=== PATIENT | female | born 1975 | race Caucasian/White ===

== ENCOUNTER 2020-11-25 08:22 | Emergency (ER) | payer SELFPAY ==
[~2020-11-25] VITALS: Ht 172.7 cm; Wt 84.8 kg
[2020-11-25] MEDS ORDERED: IBUPROFEN200 M1 PO (08:49)
[2020-11-25] MEDS ORDERED: DULOXETINE HCL60 MG PO (08:50)
[2020-11-25] MEDS ORDERED: CYMBALTA30 MG PO (08:50)
[2020-11-25] MEDS ORDERED: GABAPENTIN300 MG PO (08:50)
[2020-11-25] MEDS ORDERED: HYDROCODON-ACE1 EA11 PO (09:54)
== END 2020-11-25 10:13 | disposition home or self-care (01) ==
LOC: ED 08:22
DX: S92.354A Nondisplaced fracture of fifth metatarsal bone, right foot, initial encounter for closed fracture (principal); S82.831A Other fracture of upper and lower end of right fibula, initial encounter for closed fracture; X50.9XXA Other and unspecified overexertion or strenuous movements or postures, initial encounter; Z87.891 Personal history of nicotine dependence; Z79.899 Other long term (current) drug therapy
CPT/HCPCS: 73610; 73630; 99283-25; A9270

== ENCOUNTER 2025-01-31 07:48 | Day surgery (SDC) | payer OTHER ==
[2025-01-25 08:16] VITALS: BP 109/87
[~2025-01-31] VITALS: Ht 167.6 cm; Wt 78.6 kg
[~2025-01-31 07:48] MED LIST: BUPROPION XL450 MG PO; CYMBALTA30 MG PO; DULOXETINE HCL60 MG PO; GABAPENTIN300 MG PO; HYDROCODON-ACE1 EA11 PO; IBLOOD GLUCOSE TEST STRIP 1 EA TEST VI PRN; IBUPROFEN200 M1 PO; LACTATED RINGER'S 1,000 ML IV SCH; LIDOCAINE HCL 1% 5 ML SDV INJ ONE; METHYLPHENIDATE10 M1 PO; REXULTI2 MG PO
[2025-01-31 08:01] VITALS: BP 125/80
--- NOTE | 2025-01-31 08:12 | NUR ---
WITH PT AT BS.
--- NOTE | 2025-01-31 11:17 | NUR ---
01/31/25 1117 Alice Evans 1101-PATIENT ARRIVED TO PACU ON 6L MASK NONAROUSABLE RR EVEN. PATIENT LAYING LEFT LATERAL ABDOMEN SOFT. IVF INFUSING. SR HR 70'S. 1110-PATIENT AROUSING OPENING EYES ORIENTED TO PACU DENIES PAIN OR NAUSEA. HOB ELEVATED. 1117-PATIENT AWAKE DENIES PAIN OR NAUSEA. DRINKING WATER AND PASSING GAS. IVF INFUSING. SR HR 70'S O2 96% RR EVEN.
[2025-01-31 11:30] VITALS: BP 107/81
--- NOTE | 2025-02-01 11:31 | OR ---
[facility] [address] [place], [place] [address] Signed DATE OF OPERATION: 01/31/2025 SURGEON: Praful Ren DO PREOPERATIVE DIAGNOSES: 1. Colon cancer screening. 2. Diverticulosis. 3. Nonspecific colitis. PROCEDURE PERFORMED: Colonoscopy. ANESTHESIA: IV sedation. EBL: Is none. DRAINS: None. COMPLICATIONS: None. DESCRIPTION OF PROCEDURE: The patient was brought to the GI lab, placed in supine position. After induction of IV sedation by Anesthesia, she was placed in left lateral position and . Digital rectal exam was performed and found to be unremarkable. The Olympus video colonoscope was then introduced into the rectum and under direct visualization rectosigmoid, sigmoid colon, descending colon, transverse colon, ascending colon to the cecum. General x-rays was carried out. The scope was withdrawn slowly with the colon insufflated. The cecum and the ascending colon were unremarkable. No intrinsic or extrinsic masses were appreciated. Hepatic flexure was unremarkable. No intrinsic or extrinsic masses were noted. Transverse colon was grossly unremarkable except for nonspecific colitis. No intrinsic or extrinsic masses were appreciated. Scope was brought back to the splenic flexure. No intrinsic or extrinsic masses were noted. Scope went back into the descending colon. Nonspecific colitis was present as well, but no ulcerations were noted. No other masses were appreciated. Scope was brought back into the sigmoid colon. Scattered diverticula were noted, but no evidence of diverticulitis. No other intrinsic or extrinsic masses were noted and again nonspecific Electronically Signed By: PRAFUL REN DO 02/01/25 1131 PATIENT NAME: MARTELL TORRES OPERATIVE REPORT DATE OF : 73 REPORT #: [id number] PHYSICIAN: PRAFUL REN DO PCP: DANIS JUSTIN MD REPORT IS CONFIDENTIAL AND NOT TO BE RELEASED WITHOUT AUTHORIZATION [facility] [address] [place], [place] [address] Signed colitis was apparent as well. No ulcerations or other lesions were noted. Scope was brought back into the rectosigmoid, found to be unremarkable. The scope was then withdrawn. The patient tolerated the procedure well and she went to recovery room in satisfactory condition. DO SHASHANK Babb/MODL /[id number] Copies: ~ Electronically Signed By: PRAFUL REN DO 02/01/25 1131 PATIENT NAME: MARTELL TORRES OPERATIVE REPORT DATE OF : 73 REPORT #: [id number] PHYSICIAN: PRAFUL REN DO PCP: DANIS JUSTIN MD REPORT IS CONFIDENTIAL AND NOT TO BE RELEASED WITHOUT AUTHORIZATION
== END 2025-01-31 11:35 | disposition home or self-care (01) ==
LOC: DS 07:48
PROVIDERS: ATTEND Surgery
PROC: 0DJD8ZZ Inspection of Lower Intestinal Tract, Via Natural or Artificial Opening Endoscopic (ICD-10-PCS; principal; 2025-01-31 09:15)
DX: Z12.11 Encounter for screening for malignant neoplasm of colon (principal); K57.30 Diverticulosis of large intestine without perforation or abscess without bleeding; Z79.899 Other long term (current) drug therapy
CPT/HCPCS: 00812; J7121

== ENCOUNTER 2025-04-05 05:48 | Day surgery (SDC) | payer OTHER ==
[~2025-04-05] VITALS: Ht 167.6 cm; Wt 79.0 kg
[~2025-04-05 05:48] MED LIST changes: -IBLOOD GLUCOSE TEST STRIP 1 EA TEST VI PRN; -LIDOCAINE HCL 1% 5 ML SDV INJ ONE
[2025-04-05 06:02] VITALS: BP 131/96
[2025-04-05] MEDS ORDERED: MIDAZOLAM HCL 2 MG/2 ML VIAL ONE (06:57)
[2025-04-05] MEDS ORDERED: fentaNYL citrate 100 MCG/2 ML VIAL ONE (06:57)
[2025-04-05] MEDS ORDERED: LIDOCAINE HCL 2% 5 ML SDV ONE (06:57)
[2025-04-05] MEDS ORDERED: LIDOCAINE HCL 1% 5 ML SDV INJ ONE (07:00)
[2025-04-05] MEDS ORDERED: IBLOOD GLUCOSE TEST STRIP 1 EA TEST VI PRN (07:00)
[2025-04-05] MEDS ORDERED: CEFAZOLIN SODIUM 2 GM/20 ML SYR IV SCH (07:08)
[2025-04-05] MEDS ORDERED: CEFAZOLIN SODIUM 2 GM/20 ML SYR ONE (07:10)
--- NOTE | 2025-04-05 07:34 | NUR ---
0600 PT REFUSES TEST PER PT HAS BEEN POST MENOPAUSAL FOR [address] RODRIGUEZ.
[2025-04-05] MEDS ORDERED: KETAMINE in NS 50 MG/5 ML SYR ONE (07:45)
--- NOTE | 2025-04-05 08:32 | NUR ---
04/05/25 0832 Malissa Day 0208 PT ARRIVED TO PACU ON RA, O2 SAT 95% AND O2 6L VIA MASK TURNED ON VSS. ORAL AIRWAY IN PLACE AND RESP EVEN AND UNLABORED.
[2025-04-05 09:00] VITALS: BP 112/81
[2025-04-05] MEDS ORDERED: OXYCODONE HCL 5 MG TAB PO PRN (09:00)
--- NOTE | 2025-04-11 08:53 | PATH ---
[facility] [address] [place], [place] [address] Signed SPECIMEN(S): A LEFT UPPER OUTER BREAST SPECIMEN SOURCE: A. LEFT UPPER OUTER BREAST CLINICAL HISTORY: Left flat epithelial atypia of breast. FINAL PATHOLOGIC DIAGNOSIS: Left upper outer breast: - Radial scar with focal atypical intraductal hyperplasia - Focal columnar cell hyperplasia with mild atypia - Breast tissue with fibrocystic changes, sclerosing adenosis, and benign intraductal hyperplasia - Features consistent with previous biopsy - Benign intraductal and lobular microcalcifications are present - Negative for in situ or invasive carcinoma COMMENT: A CK5/6 stain was performed and was noncontributory. BB MICROSCOPIC EXAMINATION: Histologic sections of all submitted blocks are examined by light microscopy. These findings, together with the gross examination, support the pathologic diagnosis. GROSS DESCRIPTION: The specimen, labeled and designated "Andreas Kareem, " and designated on the requisition "left upper outer breast," is received in formalin and consists of 14 gram oriented portion of yellow-maldonado fibroadipose tissue that is 4.8 x 3.6 x 1.8 cm. A black suture identifies the superior margin, a white suture identifies the deep margin, and a clear suture at identifies the inferior margin. The specimen is inked as follows: superior - blue; inferior - green; medial - red; lateral - orange; anterior - yellow; and deep/posterior - black. The specimen is serially sectioned from medial to lateral into nine slices revealing approximately 80% of the specimen is a yellow-maldonado greasy adipose tissue and 20% is a pink-white rubbery fibrous tissue. No discrete mass lesions are grossly identified. No clips are grossly identified. PATIENT NAME: MARTELL TORRES PATHOLOGY DATE OF : 73 REPORT #: [id number] PHYSICIAN: [facility]JA PATHOLOGY PCP: DANIS JUSTIN MD REPORT IS CONFIDENTIAL AND NOT TO BE RELEASED WITHOUT AUTHORIZATION [facility] [address] [place], [place] [address] Signed Separate within the container are two portions of yellow-maldonado fibroadipose tissue that measure 1.6 x 1.5 x 1.4 cm, 2.7 x 1.6 x 0.9 cm and have a combined weight of 3 g. The tissue fragments are arbitrarily inked and sectioned revealing approximately 80% of specimen to yellow-maldonado greasy adipose tissue and 20% is a pink-white dense rubbery fibrous tissue. No discrete mass lesions are grossly identified. Separate from the specimen within the container is a metallic hearing instrument specialist detector. The specimen is entirely submitted in 22 cassettes. Cassette Summary: (A1-A4) fibroadipose tissue separate within the container (A5-A6) slice one, medial soft tissue resection margin, perpendicular (A7-A8) slice two (A9-A10) slice three (A11-A12) slice four (A13-A14) slice five (A15-A16) slice six (A17-A18) slice seven (A19-A20) slice eight (A21-A22) slice nine, lateral soft tissue resection margin, perpendicular Time of collection: 8:06 AM April 05, 2025. Time into formalin: 8:16 AM April 05, 2025. Processor load time: 9 AM April 06, 2025. Ischemic time: 10 minutes Total fixation time in formalin: 24 hours 44 minutes The ASCO/CAP guidelines related to HER2 and hormone receptor testing in breast specimens have been met and the specimen has been placed in formalin within one hour and fixed in 10% neutral buffered formalin for 6 to 72 hours. FB (under the direct supervision of a pathologist) The Gross Description was prepared using a voice recognition system. The report was reviewed for accuracy; however, sound-alike word errors, addition and/or deletions may occur. If there is any question about this report, please contact Client Services. ADDITIONAL NOTES: Immunohistochemical and/or in situ hybridization studies if performed in this case included appropriate positive controls that reacted as expected. This test was developed and its performance characteristics determined by [facility]. It has not been cleared or PATIENT NAME: MARTELL TORRES PATHOLOGY DATE OF : 73 REPORT #: [id number] PHYSICIAN: POOJA FREGOSO PCP: DANIS JUSTIN MD REPORT IS CONFIDENTIAL AND NOT TO BE RELEASED WITHOUT AUTHORIZATION [address] [address] Signed approved by the U.S. Food and Drug Administration. The FDA has determined that such clearance or approval is not necessary. This test is used for clinical purposes. It should not be regarded as investigational or for research. [facility] is certified under the Clinical Laboratory Improvement Amendments of 1988 (CLIA) as qualified to perform high complexity clinical laboratory testing. PERFORMING LABORATORY: Technical component was performed by [facility], [address] [place] [id number] (CLIA# [id number]). Professional interpretation was performed by [facility] - [address] [place] [id number] (CLIA#: [id number]). Diagnostician: Aleksey Thomason MD Pathologist Electronically Signed 04/11/2025 Copies: ~ PATIENT NAME: MARTELL TORRES PATHOLOGY DATE OF : 73 REPORT #: [id number] PHYSICIAN: [employer] [facility] PCP: DANIS JUSTIN MD REPORT IS CONFIDENTIAL AND NOT TO BE RELEASED WITHOUT AUTHORIZATION
== END 2025-04-05 09:12 | disposition home or self-care (01) ==
LOC: NUC 05:48 → DS 05:48
PROVIDERS: ATTEND Surgery
PROC: 0HBU3ZX Excision of Left Breast, Percutaneous Approach, Diagnostic (ICD-10-PCS; principal; 2025-04-05 07:30)
DX: N60.82 Other benign mammary dysplasias of left breast (principal); N60.22 Fibroadenosis of left breast; Z87.891 Personal history of nicotine dependence
CPT/HCPCS: 00400; 76098; 84703; A9270; J0690; J2003; J2250; J2704; J3010; J3490; J7121